=== PATIENT | female | born 1965 | race Native Hawaiian/Other Pacific Islander ===

== ENCOUNTER 2023-05-27 08:58 | Outpatient (CLI) | payer BC | END 2023-05-27 19:31 | disposition home or self-care (01) | LOC: US 08:58 | PROVIDERS: ATTEND Internal Medicine | DX: R74.8 Abnormal levels of other serum enzymes (principal); M81.0 Age-related osteoporosis without current pathological fracture ==

== ENCOUNTER 2023-11-29 13:40 | Outpatient (CLI) | payer BC | END 2023-11-29 20:10 | disposition home or self-care (01) | LOC: RAD 13:40 | PROVIDERS: ATTEND Physician Assistant | DX: M54.59 Other low back pain (principal) ==